=== PATIENT | female | born 1985 | race Caucasian/White ===

== ENCOUNTER 2020-03-21 12:44 | Emergency (ER) | payer OTHER ==
[~2020-03-21] VITALS: Ht 170.2 cm; Wt 72.0 kg
[2020-03-21] MEDS ORDERED: TETanus/Pertussis (Acell)/Diphther VAC/PF (Tdap-Adult) 0.5ml syringe IMVAC ONE (14:35)
[2020-03-21] MEDS ORDERED: bacitracin 15gm ointment TP ONE (14:35)
[2020-03-21] MEDS ORDERED: LIDOcaine 1% W/epiNEPHrine 1:200,000 10ml vial IJ ONE (14:35)
--- NOTE | 2020-03-21 15:48 | NUR ---
Dr. Mooney at bedside for suture updated ridfe to estmated D/C time.
[2020-03-21 16:09] VITALS: BP 111/72
== END 2020-03-21 16:16 | disposition home or self-care (01) ==
LOC: ER 12:45
DX: S06.0X0A Concussion without loss of consciousness, initial encounter (principal); S01.81XA Laceration without foreign body of other part of head, initial encounter; S80.211A Abrasion, right knee, initial encounter; S80.811A Abrasion, right lower leg, initial encounter; Z98.890 Other specified postprocedural states; V00.831A Fall from motorized mobility scooter, initial encounter; Y93.89 Activity, other specified; Y92.488 Other paved roadways as the place of occurrence of the external cause; Y99.8 Other external cause status
CPT/HCPCS: 12013; 90471; 90715; 99283